=== PATIENT | female | born 1935 | race Caucasian/White ===

== ENCOUNTER 2017-08-11 11:29 | Emergency (ER) | payer OTHER ==
[2017-08-11 11:56] VITALS: BP 142/72; PULSE 53; TEMP 97.4; BMI 28.3
--- NOTE | 2017-08-11 12:29 | PDOC ---
History of Present Illness - General Chief Complaint: Injury Stated Complaint: FALL/ RT ARM PAIN Time Seen by Provider: 08/11/17 12:16 History Source: Patient Exam Limitations: No Limitations - History of Present Illness Initial Comments: 08/11/17 12:28 82-year-old female presents to the ED with complaints of right wrist pain. Patient states was walking when she had tripped over uneven elizabeth causing her to land on her right wrist. Patient states unable to move the wrist but has no complaints of arm or finger pain. Patient denies recent injury to the affected area and denies any use of blood thinners. Occurred: reports: just prior to arrival Severity: reports: mild Pain Location: reports: upper extremity Method of Injury: Yes: fall Modifying Factors: improves with: None Associated Symptoms (Fall): denies symptoms Past History - Travel Traveled outside of the country in the last 30 days: No - Past Medical History Allergies/Adverse Reactions: Allergies Allergy/AdvReac Type Severity Reaction Status Date / Time No Known Allergies Allergy Verified 08/11/17 11:36 COPD: No - Immunization History Immunization Up to Date: Yes - Suicide/Smoking/Psychosocial Hx Smoking History: Never smoked Have you smoked in the past 12 months: No Information on smoking cessation initiated: No Hx Alcohol Use: No Drug/Substance Use Hx: No Substance Use Type: None Patient Lives Alone: No Review of Systems - Review of Systems Able to Perform ROS?: Yes Constitutional: No: Symptoms Reported Musculoskeletal: Yes: Joint Pain (right wrist), Joint Swelling Integumentary: No: Symptoms Reported Neurological: No: Symptoms reported *Physical Exam - Vital Signs Last Vital Signs Temp Pulse Resp BP Pulse Ox 97.4 F L 53 L 17 142/72 100 08/11/17 11:36 08/11/17 11:36 08/11/17 11:36 08/11/17 11:36 08/11/17 11:36 - Physical Exam General Appearance: Yes: Nourished, Appropriately Dressed. No: Apparent Distress Extremity: positive: Normal Capillary Refill, Normal Range of Motion (decreased flexion and extension of right wrist). negative: Normal Inspection, Tender ( distal aspect of right wrist ) Integumentary: positive: Normal Color, Warm, Swelling Neurologic: positive: Normal Mood/Affect, Motor Strength 5/5 (ambulatory) Procedures - Splinting Splint Location: Right: Wrist Pre-Proc Neuro Vasc Exam: normal Pre-Made Type: velcro Splint Type: Yes: Wrist Post-Proc Neuro Vasc Exam: normal Sling: Yes ED Treatment Course - RADIOLOGY Radiology Studies Ordered: Category Date Time Status WRIST- RIGHT [RAD] Stat Radiology 08/11/17 12:20 Ordered Medical Decision Making - Medical Decision Making 08/11/17 12:35 Pt with injury to right wrist Pt concerning for fx. Xray ordered for pt. 08/11/17 12:48 X-ray shows a nondisplaced distal radius and ulnar fracture. Patient placed in the immobilizer along with sling patient given referral to Dr. Bautista and will be also given disc of x-ray if patient chooses a nonaffiliated specialist. *DC/Admit/Observation/Transfer Diagnosis at time of Disposition: Radius and ulna distal fracture Qualifiers: Encounter type: initial encounter Fracture type: closed Laterality: right Qualified Code(s): S52.501A - Unspecified fracture of the lower end of right radius, initial encounter for closed fracture; S52.601A - Unspecified fracture of lower end of right ulna, initial encounter for closed fracture; S52.601A - Unspecified fracture of lower end of right ulna, initial encounter for closed fracture - Discharge Dispostion Disposition: HOME Condition at time of disposition: Good - Referrals Referrals: Huy Bautista MD [Staff Physician] - - Patient Instructions Printed Discharge Instructions: DI for Wrist Fracture Additional Instructions: Please apply ice to the affected areas much as you can tolerate for the next 3 days and elevate when not in use using the sling during the day as demonstrated here in the ER as far as positioning. Patient may also take Tylenol 975mg for discomfort. Please call referred orthopedist or you may choose a specialist. - Post Discharge Activity
[2017-08-11] MEDS ORDERED: ACETAMINOPHEN 500 MG TABLET (FP) PO ONE (12:39)
[2017-08-11] MEDS ORDERED: ACETAMINOPHEN 325 MG TABLET (FP) ONE (12:43)
== END 2017-08-11 12:57 | disposition home or self-care (01) ==
LOC: JER 11:29 → JERFT 11:29
PROC: 2W3CXYZ Immobilization of Right Lower Arm using Other Device (ICD-10-PCS; principal; 2017-08-11)
DX: S52.601A Unspecified fracture of lower end of right ulna, initial encounter for closed fracture (principal); S52.501A Unspecified fracture of the lower end of right radius, initial encounter for closed fracture; W01.0XXA Fall on same level from slipping, tripping and stumbling without subsequent striking against object, initial encounter; Y93.89 Activity, other specified; Y92.89 Other specified places as the place of occurrence of the external cause; Y99.8 Other external cause status
CPT/HCPCS: 73110-TC-RT-FY; 99281-25